=== PATIENT | male | born 1990 | race Caucasian/White ===

== ENCOUNTER 2020-10-18 02:57 | Emergency (ER) | payer OTHER, SELFPAY ==
[2020-10-18 02:59] VITALS: BP 155/97; PULSE 111; RESP 20; TEMP 38.4; O2SAT 97; BMI 31.2
[2020-10-18 03:09] VITALS: BMI 33.2
--- NOTE | 2020-10-18 03:14 | XR_ITS ---
PROCEDURE INFORMATION: Exam: XR Chest Exam date and time: 10/18/2020 3:14 AM Age: 30 years old Clinical indication: Fever and other: Sore throat TECHNIQUE: Imaging protocol: XR of the chest. Views: 2 views. COMPARISON: No relevant prior studies available. FINDINGS: Lungs: No focal consolidation. Pleural spaces: No pleural effusion. No pneumothorax. Heart/Mediastinum: Unremarkable cardiomediastinal silhouette. Bones/joints: No acute osseous findings. IMPRESSION: No focal consolidation.
[2020-10-18 03:24] LABS: Coronavirus 19, PCR Not Detected (NotDetected); Influenza A, PCR Not Detected (NotDetected); Influenza B, PCR Not Detected (NotDetected)
[2020-10-18 03:30] LABS: Basophils % 0.2 % (0.1-2.0); Eosinophils # 0.1 K/mm3 (0.0-0.4); Eosinophils % 0.5 % (0.1-12.0); Hematocrit 46.7 % (42.0-52.0); Lymphocytes # 1.3 K/mm3 (0.7-4.5); Lymphocytes % 10.6 % (10-50); Mean Corpuscular HGB Conc 34.2 g/dL (31.8-35.4); Mean Corpuscular Hemoglobin 30.3 pg (27.0-31.2); Mean Corpuscular Volume 88.5 fl (80-94); Mean Platelet Volume 8.3 fl (7.4-10.4); Monocytes # 0.8 K/mm3 (0.1-1.0); Monocytes % 6.9 % (1.7-9.3); Neutrophils % 81.9 % (37.0-80.0); Platelet Count 206 K/mm3 (142-424); Red Blood Count 5.28 M/mm3 (4.60-6.20); Red Cell Distribution Width 13.1 % (11.5-17.5); White Blood Count 12.3 K/mm3 (4.8-10.8)
[2020-10-18 03:30] LABS: Microscopic, Urine URINE MICROSCOPIC (MICROSCOPIC)
--- NOTE | 2020-10-18 03:31 | [facility].EDFEV ---
ED Disposition Clinical Impression: Febrile illness, acute Disposition: Home, Self-Care Condition on Discharge: Good Instructions: DI for Fever (Symptom) -- Adult Additional Instructions: fluids and see pcp for follow up Referrals: Giancarlo Minor [Primary Care Provider] - - Critical Care Critical Care Time: No Attestation: On 10/18/20, the high probability of a clinically significant, sudden or life threatening deterioration of the following system(s) required my full and direct attention, intervention and personal management. The time I documented below is in addition to time spent performing reported procedures but includes the following listed in this critical care notation. Medical Decision Making - Medical Records Medical records reviewed: Yes: I reviewed the patient's medical records. - Slava Inquiry Pt receiving controlled substance: No Vital Signs: 10/18/20 02:59 10/18/20 04:00 10/18/20 04:49 Temperature 101.1 F H 98.5 F Temperature Source Oral Oral Pulse Rate 103 H Pulse Rate [Right Radial] 111 H Respiratory Rate 20 18 Blood Pressure 127/65 Blood Pressure [Right Arm] 155/97 H Blood Pressure Mean [Right Arm] 116 Blood Pressure Source [Right Arm] Automatic Cuff Blood Pressure Position [Right Arm] Supine 02 Sat by Pulse Oximetry 97 95 Oxygen Delivery Method Room Air Room Air - Lab Data Lab results reviewed: Yes: I reviewed the patient's lab results. Lab Results 10/18/20 03:11: SARS-CoV-2 (PCR) Not detected, Influenza A Untype (PCR) Not detected, Influenza Type B (PCR) Not detected 10/18/20 03:13: Urine Color Dk yellow, Urine Appearance Clear, Urine pH 6.5, Ur Specific [place] 1.025, Urine Protein 1+, Urine Glucose (UA) Negative, Urine Ketones 3+, Urine Blood Trace-i, Urine Nitrate Negative, Urine Bilirubin Negative, Urine Urobilinogen 1.0, Ur Leukocyte Esterase Negative, Urine RBC 5-10, Urine WBC Occasional, Ur Squamous Epith Cells Occasional, Amorphous Sediment Trace, Urine Mucus 4+ 10/18/20 03:22: WBC 12.3 H, RBC 5.28, Hgb 16.0, Hct 46.7, MCV 88.5, MCH 30.3, MCHC 34.2, RDW 13.1, Plt Count 206, MPV 8.3, Neut % (Auto) 81.9 H, Lymph % (Auto) 10.6, George % (Auto) 6.9, Eos % (Auto) 0.5, Baso % (Auto) 0.2, Neut # (Auto) 10.0 H, Lymph # (Auto) 1.3, George # (Auto) 0.8, Eos # (Auto) 0.1, Baso # (Auto) 0.0 10/18/20 03:22: Sodium 136, Potassium 4.4, Chloride 101, Carbon Dioxide 24, Anion Gap 15.4 H, BUN 12, Creatinine 1.00, Estimated Creat Clear 153, Estimated GFR 87, Est GFR ( Amer) 105, Glucose 153 H, Calcium 9.2, Total Bilirubin 1.1, AST 31, ALT 48, Alkaline Phosphatase 76, Total Creatine Kinase 183 H, C-Reactive Protein 74.9 H, Total Protein 7.6, Albumin 4.4, Globulin 3.2, Albumin/Globulin Ratio 1.4 10/18/20 03:22: ESR 28 H 10/18/20 03:22: Procalcitonin 0.225 10/18/20 03:22: Monoscreen Negative Result diagrams: 10/18/20 03:22 10/18/20 03:22 Orders (Tests/Meds): ED MEDICATIONS Generic Name Dose Route Start Last Admin Trade Name Freq PRN Reason Stop Dose Admin Lactated Ringer's 1,000 mls @ 999 mls/hr 10/18/20 03:15 10/18/20 03:29 Lactated Ringer's 1000 Ml Bag IV 10/18/20 04:15 999 mls/hr .Q1H1M JJ Administration Lactated Ringer's 1,000 mls @ 999 mls/hr 10/18/20 04:15 10/18/20 04:52 Lactated Ringer's 1000 Ml Bag IV 10/18/20 05:15 999 mls/hr .Q1H1M JJ Administration Discontinued Medications Generic Name Dose Route Start Last Admin Trade Name Freq PRN Reason Stop Dose Admin Acetaminophen 1,000 mg 10/18/20 03:13 10/18/20 03:13 Acetaminophen 500mg Tab PO 10/18/20 03:14 1,000 mg ONCE ONE Administration Ibuprofen 600 mg 10/18/20 03:14 10/18/20 03:13 Ibuprofen 600 Mg Tablet PO 10/18/20 03:15 600 mg ONCE ONE Administration - Radiology Data #1 Image(s): Chest Image Reviewed: Yes I have reviewed radiologist's interpretation Preliminary Findings: Normal/NAD Medical Decision Narrative: nonspecific febri
[2020-10-18 03:32] LABS: Appearance,Urine CLEAR (Clear); Blood, Urine TRACE-I (Negative); Color,Urine DK YELLOW (Yellow); Glucose,Urine (UA) Negative (Negative); Ketones,Urine 3+ (Negative); Leukocyte Esterase,Urine Negative (Negative); Nitrate,Urine Negative (Negative); PH,Urine 6.5 (5.0-8.5); Protein,Urine 1+ (Negative); Specific Gravity, Urine 1.025 (1.005-1.030)
[2020-10-18 03:35] LABS: Amorphous Sediment,Urine Trace /lpf; Bilirubin,Urine Negative (Negative); Mucus,Urine 4+ /lpf; Squamous Epithelial Cell,Urine Occasional #/hpf (0-5); WBC,Urine Occasional #/hpf (0-3)
[2020-10-18 03:44] LABS: Alanine Aminotransferase 48 U/L (12-78); Albumin Level 4.4 g/dl (3.5-5.0); Albumin/Globulin Ratio 1.4 (1.1-1.8); Alkaline Phosphatase 76 U/L (38-126); Anion Gap 15.4 mEq/L (5-15); Aspartate Amino Transferase 31 U/L (17-59); Bilirubin,Total 1.1 mg/dl (0.2-1.3); Blood Urea Nitrogen 12 mg/dl (9-20); Calcium 9.2 mg/dl (8.4-10.2); Carbon Dioxide 24 mmol/L (22.0-30.0); Chloride 101 mmol/L (98-107); Creatine Kinase 183 U/L (55-170); Creatinine Clearance Estimated 153 mL/min (50-200); Estimated Glomerular Filt Rate 87 ml/min (>60); GFR (African American) 105 ML/MIN (>60); Globulin 3.2 g/dL (1.3-3.2); Glucose 153 mg/dl (74-100); Potassium 4.4 mmoL/L (3.5-5.1); Sodium 136 mmol/L (136-145); Total Protein,Serum 7.6 g/dl (6.3-8.2)
[2020-10-18 03:49] LABS: C-Reactive Protein 74.9 mg/L (0-4)
[2020-10-18 03:59] LABS: Erythrocyte Sedimentation Rate 28 mm/hr (0-15)
[2020-10-18 04:00] VITALS: BP 127/65; PULSE 103; RESP 18; O2SAT 95
[2020-10-18 04:03] LABS: Procalcitonin 0.225 ng/mL (0.0-2.0)
[2020-10-18 04:07] LABS: Monoscreen (Rapid) Negative (Negative)
[2020-10-18 04:49] VITALS: TEMP 36.9
[2020-10-18 05:04] VITALS: BP 116/70; PULSE 92; RESP 18; TEMP 36.8; O2SAT 98
== END 2020-10-18 05:18 | disposition home or self-care (01) ==
PROVIDERS: Emergency Provider Emergency Medicine; PCP Internal Medicine
DX: J03.90 Acute tonsillitis, unspecified (principal)
CPT/HCPCS: 71046; 80053; 81001; 82550; 84145; 85025; 85651; 86140; 86318; 96365; 96366; 99283; U0003